=== PATIENT | male | born 1940 | race Caucasian/White ===

== ENCOUNTER 2016-12-14 18:45 | Emergency (ER) | payer MEDICARE, BC ==
[2016-12-14 16:42] LABS: WBC (NOT ORDERED) (RFLEX) 0 (0-5)
[2016-12-14 16:47] LABS: BASOPHILS 0.3 %; BASOPHILS ABSOLUTE 0.02 10/3/uL (0.0-0.16); EOSINOPHILS 0.6 %; EOSINOPHILS ABSOLUTE 0.04 10/3/uL (0.0-0.53); HEMATOCRIT 38.7 % (40.0-51.0); HEMOGLOBIN 12.6 g/dL (13.6-17.8); IMMATURE GRANULOCYTES 0.4 %; IMMATURE GRANULOCYTES ABSOLUTE 0.03 10/3/uL (0.0-0.11); LYMPHOCYTES 19.5 %; LYMPHOCYTES ABSOLUTE 1.38 10/3/uL (0.67-4.30); MEAN CORPUS HGB CONC 32.6 g/dL (32.0-36.0); MEAN CORPUSCULAR HEMOGLOB 30.9 pg (26.0-34.0); MEAN CORPUSCULAR VOLUME 94.9 fL (80-100); MEAN PLATELET VOLUME 9.4 fL (9.2-13.0); MONOCYTES 9.6 %; MONOCYTES ABSOLUTE 0.68 10/3/uL (0.21-1.20); NEUTROPHILS 69.6 %; NEUTROPHILS ABSOLUTE 4.94 10/3/uL (2.02-8.40); PLATELET COUNT 182 10/3/uL (150-400); RBC DISTRIBUTION WIDTH 15.1 % (12.0-16.0); RED CELL COUNT 4.08 10/6/uL (4.7-6.1); WHITE BLOOD CELLS 7.1 10/3/uL (4.5-10.5)
[2016-12-14 16:48] LABS: ER CBC TAT 0 Hrs 07 Mins; MANUAL DIFF NO %
[2016-12-14 16:50] LABS: ASCORBIC ACID (UR NOT ORDER) NEG (NEG); BILIRUBIN, URINE NEGATIVE (NEG); ER URINALYSIS TAT 0 Hrs 10 Mins; KETONE, URINE NEGATIVE (NEG); LEUKOCYTE ESTERASE(NOT OR NEG (NEG); NITRITE (URINE) NEG (NEG)
[2016-12-14 17:05] LABS: A/G RATIO 0.8 (0.7-1.9); ALBUMIN 2.8 G/DL (3.5-5.0); BUN (BLOOD UREA NITROGEN) 15 MG/DL (6-23); CALCIUM, SERUM 8.6 MG/DL (8.5-10.4); CHLORIDE, SERUM 104 MMOL/L (96-112); CO2 (CARBON DIOXIDE) 29 MMOL/L (24-34); CREATININE 0.92 MG/DL (0.70-1.30); GFR AFRICAN AMERICAN 93 ML/MIN (>=60); GFR NON AFRICAN AMERICAN 80 ML/MIN (>=60); GLOBULIN 3.4 G/DL (2.5-4.1); GLUCOSE, SERUM 107 MG/DL (60-99); LACTATE 1.1 MMOL/L (0.3-2.4); POTASSIUM, SERUM 4.6 MMOL/L (3.5-5.3); SGOT(AST) 204 U/L (5-40); SGPT(ALT) 181 U/L (5-65); SODIUM, SERUM 141 MMOL/L (135-148); TOTAL BILIRUBIN 0.7 MG/DL (0-1.2); TOTAL PROTEIN 6.2 G/DL (6.0-8.5); TROPONIN I 0.02 NG/ML (<0.05)
[2016-12-14 17:07] LABS: ALKALINE PHOSPHATASE 101 U/L (45-117)
[~2016-12-14 18:45] MED LIST: ACET500CAP PO; ALKA SELTZER OR; ALLEGRA180 PO; B121000P IM; C25 PO; C5 PO; COUMADIN4 MG PO; CYANO1000T PO; DITRO5 PO; DSS PO; FLAG500TAB PO; FLEXERIL5 MG PO; FLONASE NAS; FLORASTOR250 MG PO; K500 PO; L20 PO; L40 PO; LEVAQUIN750 MG PO; LORTAB 5/325 PO; METOPROLOL PO; MULTIVITAMI1 PO; MURINE EYE DROPS OPH; MURINE EYE DROPS OT; MURO1282% OPH; NATURA2 OPH; NORCO1 TA1 PO; NORV5 PO; OPTI CLEAR OPH; OTC ALLERGY TABLET PO; OXYCOD PO; PRILOSEC40 MG PO; PRIN10 PO; ROLAID PO; TOPXL25 PO; TOPXL50 PO; VITAMIN B-121000 MC1 SL; ZANTAC150 MG PO; ZOFRAN4 PO; [UNRECOGNIZED DRUG - OTHER]; [UNRECOGNIZED DRUG - OTHER] PO; [UNRECOGNIZED DRUG - REMARK] PO
[2016-12-23] MEDS ORDERED: VITAMIN B-121000 MC1 SL (16:13)
[2016-12-23] MEDS ORDERED: CALTRA600D PO (16:14)
[2016-12-23] MEDS ORDERED: JANTOVEN6 MG PO (16:15)
[2016-12-23] MEDS ORDERED: JANTOVEN4 MG PO (16:15)
[2016-12-23] MEDS ORDERED: ROLAIDS PO (17:09)
[2017-06-23] MEDS ORDERED: ZOFRAN4 PO (10:48)
== END 2016-12-14 19:51 | disposition home or self-care (01) ==
LOC: ER 18:45
PROVIDERS: Hospitalist
DX: R11.10 Vomiting, unspecified (principal); R10.9 Unspecified abdominal pain; I10 Essential (primary) hypertension; I48.91 Unspecified atrial fibrillation; K21.9 Gastro-esophageal reflux disease without esophagitis; Z87.442 Personal history of urinary calculi; Z85.46 Personal history of malignant neoplasm of prostate; Z88.5 Allergy status to narcotic agent; Z79.01 Long term (current) use of anticoagulants; Z79.899 Other long term (current) drug therapy
CPT/HCPCS: 71010; 74176; 80053; 81001; 83605; 83690; 84484; 85025; 99285

== ENCOUNTER 2016-12-20 20:26 | Inpatient (IN) | payer MEDICARE, BC ==
--- NOTE | ~2016-12-20 | CN ---
Consultation Report [facility] [address] [place]. [address] NAME: OLIVER VILLALPANDO : 38 STATUS : ADM IN [facility]#: [id number] AGE: 76 ADM/REG DATE : 12/21/16 MR#: [id number] REPORT SERV DATE: 12/21/16 DICTATED BY: SABAS BOWSER DATE: 12/21/16 REPORT STATUS : Draft TRANSCRIBED BY: MODL DATE: 12/21/16 CONSULTATION DATE OF CONSULTATION: 12/21/2016 CHIEF COMPLAINT: Right proximal humerus fracture. HISTORY OF PRESENT ILLNESS: The patient is a 76-year-old gentleman, who fell at home yesterday and injured his right shoulder. He was taken to the emergency department and had x-rays and was found to have a right proximal humerus fracture. He was admitted due to pain control. He said he fell on his right shoulder and had all his weight fall directly on his shoulder. He said that he was having extreme pain with any movement. PAST MEDICAL HISTORY: Atrial fibrillation, peptic ulcer disease, aortic aneurysm, prostate cancer, hypertension, pneumonia, chronic lymphedema. PAST SURGICAL HISTORY: Prostatectomy, cholecystectomy, gastrectomy, rhinoplasty, bilateral inguinal hernia. He has had a rotator cuff by Dr. Arevalo on the right, rotator cuff by Dr. Pascual on the left and hammertoe surgery. ALLERGIES: CODEINE. SOCIAL HISTORY: He quit smoking in 1989. He lives and cares for his son with Down syndrome. He is retired. He has another son, who lives near him. FAMILY HISTORY: Noncontributory. CURRENT MEDICATIONS: Lasix, lisinopril, metoprolol, probiotics, vitamin B12, stool softener, Coumadin alternating 4 and 6 mg doses. REVIEW OF SYSTEMS: Times 10 is negative, except for above. PHYSICAL EXAMINATION: GENERAL: Well-developed, well-nourished male, in no acute distress. HEENT: Normocephalic and atraumatic. RESPIRATORY: Nonlabored respirations. Equal chest rise bilaterally. EXTREMITIES: He has no cyanosis or clubbing. MUSCULOSKELETAL: Right upper extremity, extreme pain with any movement, tender to palpation. He has ecchymosis to right shoulder. NEURO: Alert and oriented x3. Neurovascularly intact right upper extremity. PSYCH: Normal mood and affect. LABORATORY DATA: INR is 3.1 on admission, 2.5 this morning. X-rays show comminuted fracture Consultation Report [place] [address] [facility] [address] NAME: OLIVER VILLALPANDO : 39 STATUS : ADM IN [facility]#: [id number] AGE: 76 ADM/REG DATE : 12/21/16 MR#: [id number] REPORT SERV DATE: 12/21/16 DICTATED BY: SABAS BOWSER DATE: 12/21/16 REPORT STATUS : Draft TRANSCRIBED BY: VEENA DATE: 12/21/16 of his right shoulder. ASSESSMENT AND PLAN: Right proximal humerus fracture. We are going to order a diet and let him come off his Coumadin. We will plan for surgery later in the week. RAYNA/VEENA Sabas Bowser MD / [id number] CC: Marisol Sanabria M.D.
--- NOTE | ~2016-12-20 | DS ---
Discharge Summary [place] [id number] [place]. [address] NAME: OLIVER VILLALPANDO : 39 STATUS : DIS IN PAT#: [id number] AGE: 76 ADM/REG DATE : 12/21/16 MR#: [id number] REPORT SERV DATE: 12/22/16 DICTATED BY: JAMI LYON DATE: 12/21/16 REPORT STATUS : Draft TRANSCRIBED BY: MODL DATE: 12/21/16 ADMISSION DATE: 12/21/2016 DISCHARGE DATE: 12/21/2016 DISCHARGE DIAGNOSIS: 1. Right humerus fracture. The patient is seen by Dr. Srinivasan who recommended coming back next week due to this lesion does not need to be acutely treated at this point, and also the surgeon's schedule gautam, there is no surgeon available at this point this week. The patient's fracture is stable enough to continue to wait until next week on when Dr. Srinivasan sees this patient. 2. Atrial fibrillation with chronic Coumadin use, INR was 2.5. We are going to continue the Coumadin at a lower dose until the surgery. 3. Hypertension. 4. No urinary tract infection. BALL RACKER: Sabas Srinivasan MD. HISTORY OF PRESENT ILLNESS: This is a 76-year-old male patient, who came to the hospital with a mechanical fall with a finding of right fractured humerus. Please see dictated H and P. HOSPITAL COURSE: He was admitted to hospital with a right humerus fracture, seen by Dr. Srinivasan, orthopedic surgeon. Currently, surgery is not available at this point, and his fracture needs to be urgently operated. Dr. Srinivasan recommended pain control and sling, and the patient will be seen by Dr. Srinivasan as an outpatient on the . It was explained to the patient, and finally he agreed to go home. We are going to prescribe hydrocodone 10 and Xanax for pain control, and we are going to provide a cane and a sling for balance assistance. Overall, he is stable and tolerating pain with the current pain management, and we are going to continue to use hydrocodone and Xanax as discharge pain medication. DISCHARGE MEDICATION: Lisinopril 10 mg once a day, Toprol-XL 50 mg once a day, Probiotic once a day, vitamin B12 once a day, the Coumadin I am going to cut it down to 2 mg until he sees the surgeon, Saturninoix 40 mg twice a day as needed, and again hydrocodone 10 and Xanax 0.5. ADDENDUM I discussed this case with Dr. Srinivasan and discharge plan was done. Dr. Arevalo visited this patient. He also received consultation from emergency room from yesterday and Dr. Srinivasan also received consultation from emergency room yesterday as well. According to the past surgical history, Dr. Arevalo did right shoulder surgery and Dr. Pascual, who is Dr. Srinivasan's partner did the left shoulder rotator cuff surgery. Dr. Arevalo is available this and he asked the patient to choose which surgeon he would like to go for his right humeral fracture and the patient chose to see Dr. Arevalo in his office on Wednesday and having surgery on in [facility] and the patient decided to go to see Dr. Arevalo. Dr. Srinivasan was also updated regarding this change and the patient will be discharged with current medication, but no Coumadin because he is going to have an evaluation sooner than next Wednesday, which he originally was planned. Therefore, the patient Discharge Summary [address] [address] NAME: OLIVER VILLALPANDO : 38 STATUS : DIS IN PAT#: [id number] AGE: 76 ADM/REG DATE : 12/21/16 MR#: [id number] REPORT SERV DATE: 12/22/16 DICTATED BY: JAMI LYON DATE: 12/21/16 REPORT STATUS : Draft TRANSCRIBED BY: MODL DATE: 12/21/16 will be discharged without Coumadin and is seeing Dr. Arevalo in his office on Wednesday and tentatively having surgery on . EKL/MODL Jami Lyon M.D. / [id number] / [id number] CC: Estefany Butler M.D.
--- NOTE | ~2016-12-20 | CN ---
Consultation Report [facility] [address] [place]. [address] NAME: OLIVER VILLALPANDO : 39 STATUS : DIS IN PAT#: [id number] AGE: 76 ADM/REG DATE : 12/21/16 MR#: [id number] REPORT SERV DATE: 01/01/17 DICTATED BY: HENRI ROBLERO DATE: 12/22/16 REPORT STATUS : Draft TRANSCRIBED BY: MODL DATE: 12/22/16 CONSULTATION DATE OF CONSULTATION: 12/21/2016 I was called to see the patient. CHIEF COMPLAINT: Fall, simply slipped at home and fell onto his foreface basically and his right shoulder suffering a comminuted humeral head fracture. They called me about him yesterday, to come to a consult today, got to see him, and it really was just for that shoulder and does not have anything else that is keeping him, so it is not pancreatitis or diverticulosis or CHF or leukocytosis or anything like that that is causing him any problems. I did speak with the primary care doctor about him. So I think we are going to go ahead and let him go home with a sling and swathe and to see me in the office so we can set this up on a more outpatient basis. He will need something either fixation or a hemiarthroplasty, and we may not even know that till we get in there. In addition, he is also on Coumadin so he has to slowly get off that. There is a couple of options and one is to keep him here and give him FFP and platelets and stuff like that and try to do that or to let him come down naturally over a couple days and do this later and that is what we are going to do and that helps both, may be able to take care of him and I think this may be a little teeny bit less risky as regard to clotting, and again I did discuss this with Dr. Lyon, so she will keep him off that. He will see me in the office on Wednesday and will plan this for or Wednesday depending on his INR. So his chief complaint is right shoulder pain. He complains of achy constant pain with occasional sharp pain. He denies numbness or tingling or anesthesia. He does have difficulty moving it because it is so painful. Any motion makes it feel worse. Keeping it still makes it feel better. PAST MEDICAL HISTORY: Past medical history is extensive and includes previous shoulder surgery on this side by me and previous shoulder surgery on the other side by Dr. Pascual, I believe. The remainder of his past medical history is seen in his admit note from Dr. Lyon. SOCIAL HISTORY: He denies tobacco or alcohol use and lives at home. Currently is independent. FAMILY HISTORY: Noncontributory. REVIEW OF SYSTEMS: Other than what has been mentioned above, the remainder of the review of systems is negative or noncontributory. PHYSICAL EXAMINATION: Consultation Report [place] [id number] [place]. [address] NAME: OLIVER VILLALPANDO : 38 STATUS : DIS IN PAT#: [id number] AGE: 76 ADM/REG DATE : 12/21/16 MR#: [id number] REPORT SERV DATE: 01/01/17 DICTATED BY: HENRI ROBLERO DATE: 12/22/16 REPORT STATUS : Draft TRANSCRIBED BY: VEENA DATE: 12/22/16 GENERAL: On examination, patient is a 76-year-old white male, alert and oriented x3. Pleasant and cooperative. Knew me as soon as I came into the room and seems very with it, although he may be confused at some times. HEENT: Within normal limits except for he has a big bruise over his proximal right face and a little abrasion over his eyebrow on that side. There is no crepitus or anything like that. The rest of his facial exam is within normal. There are no focal defects. NECK: Supple. CHEST: Clear. HEART: Regular rate and rhythm. ABDOMEN: Soft, nontender, benign. EXTREMITIES: All four extremities are neurovascularly intact. The right upper extremity is held to his side in a sort of sling, and he is tender with any motion. He has light touch that is over the sensory nerve over the lateral aspect of his shoulder, axillary nerve, and branch and distally. He can move his fingers, open and close, intrinsics all work. Distally, he has good motor and sensory function on both sides. IMAGING: Review of his x-ray shows a comminuted humeral head fracture and one of the tuberosities is off, it is hard to tell which one with the fracture, but it looks like the lesser tuberosity may be off posteriorly. It is not dislocated or anything, but it does mean the head is separate. ASSESSMENT: A 76-year-old man with a previous shoulder injury, who now has a humeral head fracture. Assessment is that he will likely need to have this fixed in one way or another. If we can get it fixed, we may put a plate on it trying to get it fixed, but with that head off, I would like to see it a little better when we are doing this. If the head is completely devoid of good blood supply or mostly devoid of good blood supply, clearly one of the tuberosities is off, which is a major blood supply to that. The shaft is off, which is not a major blood supply to that, only at least one tuberosity to even be attached. If that is not very good, he may benefit better from a head and neck replacing hemiarthroplasty rather than ORIF. We probably will decide it intra-op. In talking with his primary care doctor, we will get him out, go home. He will see me in the office on Wednesday and we will try to get him booked for or Wednesday based on his INR for repair of his right shoulder. TERRY/VEENA Henri Roblero M.D. / [id number] CC: Consultation Report [address] [address] NAME: OLIVER VILLALPANDO : 38 STATUS : DIS IN PAT#: [id number] AGE: 76 ADM/REG DATE : 12/21/16 MR#: [id number] REPORT SERV DATE: 01/01/17 DICTATED BY: HENRI ROBLERO DATE: 12/22/16 REPORT STATUS : Draft TRANSCRIBED BY: VEENA DATE: 12/22/16 Marisol Sanabria M.D.
--- NOTE | ~2016-12-20 | HP ---
History And Physical [address] [address] NAME: OLIVER VILLALPANDO : 38 STATUS : ADM Theron PAT#: [id number] AGE: 76 ADM/REG DATE : 12/20/16 MR#: [id number] REPORT SERV DATE: 12/21/16 DICTATED BY: SMILEY TAYLOR DATE: 12/21/16 REPORT STATUS : Draft TRANSCRIBED BY: MODJosh DATE: 12/21/16 DATE OF ADMISSION: 12/20/2016 CHIEF COMPLAINT: A 76-year-old male presenting with a fall, closed head injury, and right shoulder fracture. HISTORY OF PRESENTING ILLNESS: The patient's history was obtained through careful interview with the patient, coupled with review of [facility] medical records. The patient was outside "piddling around" looking at an evergreen mayer when he lost his balance and fell head first onto the ground. He states that "my entire body weight" fell onto the tip of his right shoulder and he had extreme pain. He also glanced the right side of his head with a small abrasion, probably he describes mostly of right shoulder pain, an aching quality. He states that it is a 120/10 severity pain exacerbated by any kind of movement. There was no loss of consciousness. No headache. He had to "scoot" on his "rear-end" to get to close to his house where he can call the son for assistance. He has had chronic right greater than left lymphedema. No chest pain. No shortness of breath. No nausea or vomiting. No fevers or chills. No recent illness. REVIEW OF SYSTEMS: Otherwise, a 14-point review of systems was obtained and was negative. PAST MEDICAL HISTORY: 1. Atrial fibrillation. 2. Peptic ulcer disease with gastroesophageal reflux disorder, followed by Dr. Turner. 3. Nephrolithiasis. 4. Thoracic aortic aneurysm 4.1 cm, seen by Dr. Kaur. 5. Prostate cancer, status post surgery, 2004. 6. Hypertension. 7. Pneumonia. 8. Klebsiella bacteremia, 2014. 9. Colitis, 06/2016. 10.Pancreatic nodule. 11.Chronic lymphedema, right greater than left. PAST SURGICAL HISTORY: 1. Prostatectomy, 2004. 2. Cholecystectomy. 3. Right knee surgery. History And Physical [address] [address] NAME: OLIVER VILLALPANDO : 38 STATUS : ADM Theron PAT#: [id number] AGE: 76 ADM/REG DATE : 12/20/16 MR#: [id number] REPORT SERV DATE: 12/21/16 DICTATED BY: SMILEY TAYLOR DATE: 12/21/16 REPORT STATUS : Draft TRANSCRIBED BY: VEENA DATE: 12/21/16 4. Gastrectomy with vagotomy for peptic ulcer disease. 5. Rhinoplasty. 6. Bilateral inguinal hernia repairs. 7. Bilateral shoulder operations. 8. Right hand surgery. 9. Bilateral hammertoe surgery. ALLERGIES: CODEINE. SOCIAL HISTORY: Quit smoking in 1989, but had been a three pack per day smoker prior to that. No alcohol abuse. Has been a since 2008. He lives and cares for his Down's syndrome son. He is retired from the [employer]. He has another son, who lives near by. 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 FAMILY HISTORY: Mother at 85 years of age. Father at 84 years of age. No family history of heart disease. CURRENT MEDICATIONS: Include Lasix 40 mg p.o. b.i.d., lisinopril 10 mg p.o. daily, metoprolol-XL 50 mg p.o. daily, probiotics, vitamin B12, eye drops, stool softener, Coumadin alternating doses of 4 and 6 mg. PHYSICAL EXAMINATION: VITAL SIGNS: Temperature 98.5, pulse 85, blood pressure 137/93, respiratory rate 17, O2 saturation 96% on room air. GENERAL: A pleasant, cooperative male, but he describes distress from his severe right shoulder pain. HEENT: Pupils equal, round, and reactive to light. No conjunctival pallor. No scleral icterus. Nares are patent. Oropharynx is clear of obstruction. Moist mucous membranes. NECK: Trachea midline. No thyromegaly. LYMPH: No cervical lymphadenopathy. No supraclavicular lymphadenopathy. RESPIRATORY: Clear to auscultation at bases. No wheezes, rales, or rhonchi. Normal respiratory effort. CARDIOVASCULAR: Irregularly irregular. No murmurs, rubs, or gallops, though the patient does have right greater than left pitting lower extremity edema, chronic in appearance. ABDOMEN: Soft, nontender, nondistended. Normal bowel sounds auscultated throughout. No hepatosplenomegaly. DERMATOLOGICAL: Warm and dry. EXTREMITIES: No pallor, no cyanosis. PSYCHIATRIC: Normal affect. Good mood. Alert and oriented x3. LABORATORY DATA: White blood cell count 13.1, hemoglobin 13, hematocrit 39, platelets 213. Sodium 142, potassium 4.4, chloride 104, bicarb 30, BUN 24, creatinine 1.19, glucose 109. Brain natriuretic peptide 297, albumin 2.8. Troponin negative. INR 3.1. STUDIES: 1. CT scan of the brain without contrast shows no acute intracranial process. History And Physical [address] [address] NAME: OLIVER VILLALPANDO : 38 STATUS : ADM Theron PAT#: [id number] AGE: 76 ADM/REG DATE : 12/20/16 MR#: [id number] REPORT SERV DATE: 12/21/16 DICTATED BY: SMILEY TAYLOR DATE: 12/21/16 REPORT STATUS : Draft TRANSCRIBED BY: MODL DATE: 12/21/16 2. Chest x-ray by my own evaluation shows no acute cardiopulmonary process. 3. X-ray shows right shoulder fracture with dislocation. 4. CT scan of the abdomen on 12/14/2016 was read as negative. ASSESSMENT AND PLAN: 1. Right humerus head fracture. Consult orthopedic surgeon. Place on IV narcotic pain management. Obtain a case management evaluation, as the patient may need eventual disposition to rehab? 2. Atrial fibrillation, on Coumadin. Check telemetry. 3. Leukocytosis. Monitor closely. Check urinalysis. 4. Closed head injury. Negative CT scan of the brain. KPL/MODL Smiley Taylor M.D. / [id number] CC: Marisol Sanabria M.D. John Chrostowski, M.D.
[2016-12-20 19:09] LABS: BASOPHILS 0.2 %; BASOPHILS ABSOLUTE 0.02 10/3/uL (0.0-0.16); EOSINOPHILS 0.5 %; EOSINOPHILS ABSOLUTE 0.06 10/3/uL (0.0-0.53); HEMATOCRIT 38.6 % (40.0-51.0); HEMOGLOBIN 12.6 g/dL (13.6-17.8); IMMATURE GRANULOCYTES 0.6 %; IMMATURE GRANULOCYTES ABSOLUTE 0.08 10/3/uL (0.0-0.11); LYMPHOCYTES 9.9 %; MEAN CORPUS HGB CONC 32.6 g/dL (32.0-36.0); MEAN CORPUSCULAR VOLUME 95.1 fL (80-100); MEAN PLATELET VOLUME 9.4 fL (9.2-13.0); MONOCYTES 8.8 %; MONOCYTES ABSOLUTE 1.15 10/3/uL (0.21-1.20); PLATELET COUNT 213 10/3/uL (150-400); RBC DISTRIBUTION WIDTH 15.4 % (12.0-16.0); RED CELL COUNT 4.06 10/6/uL (4.7-6.1)
[2016-12-20 19:13] LABS: ER CBC TAT 0 Hrs 08 Mins; MANUAL DIFF NO %; WHITE BLOOD CELLS 13.1 10/3/uL (4.5-10.5)
[2016-12-20 19:25] LABS: INTERNATIONAL NORMAL RATI 3.1 UNITS (-); PARTIAL THROMBO TIME 40.5 SEC (22.5-37.2)
[2016-12-20 19:26] LABS: BUN (BLOOD UREA NITROGEN) 24 MG/DL (6-23); CALCIUM, SERUM 8.6 MG/DL (8.5-10.4); CHEST PAIN PROFILE TAT 0 Hrs 21 Mins; CHLORIDE, SERUM 104 MMOL/L (96-112); CO2 (CARBON DIOXIDE) 30 MMOL/L (24-34); CREATININE 1.19 MG/DL (0.70-1.30); GFR AFRICAN AMERICAN 68 ML/MIN (>=60); GFR NON AFRICAN AMERICAN 59 ML/MIN (>=60); GLUCOSE, SERUM 101 MG/DL (60-99); POTASSIUM, SERUM 4.4 MMOL/L (3.5-5.3); SODIUM, SERUM 142 MMOL/L (135-148); TROPONIN I <0.02 NG/ML (<0.05)
[2016-12-20 19:33] LABS: PROTIME (NOT ORD) 31.9 SEC (12.0-14.5)
[2016-12-20] MEDS ORDERED: PROBIOTIC PO (21:06)
[2016-12-20] MEDS ORDERED: VITAMIN B12 OTC PO (21:07)
[2016-12-20] MEDS ORDERED: PRIN10 PO (21:07)
[2016-12-20] MEDS ORDERED: TOPXL50 PO (21:07)
[2016-12-20] MEDS ORDERED: JANTOVEN4 MG PO (21:08)
[2016-12-20] MEDS ORDERED: L40 PO (21:08)
[2016-12-20] MEDS ORDERED: COUMADIN6 MG PO (21:08)
[2016-12-20] MEDS ORDERED: COLD AND COUGH PO (21:09)
[2016-12-20] MEDS ORDERED: MURINE EYE DROPS OPH (21:09)
[2016-12-20] MEDS ORDERED: STOOL SOFTENER OTC PO (21:10)
[2016-12-20 21:33] LABS: WBC (NOT ORDERED) (RFLEX) 0 (0-5)
[2016-12-20 21:44] LABS: ASCORBIC ACID (UR NOT ORDER) NEG (NEG); BILIRUBIN, URINE NEGATIVE (NEG); ER URINALYSIS TAT 0 Hrs 12 Mins; KETONE, URINE NEGATIVE (NEG); LEUKOCYTE ESTERASE(NOT OR NEG (NEG); NITRITE (URINE) NEG (NEG)
[2016-12-21 05:07] LABS: BASOPHILS 0.1 %; BASOPHILS ABSOLUTE 0.01 10/3/uL (0.0-0.16); EOSINOPHILS 0.6 %; EOSINOPHILS ABSOLUTE 0.06 10/3/uL (0.0-0.53); HEMATOCRIT 34.9 % (40.0-51.0); HEMOGLOBIN 11.4 g/dL (13.6-17.8); IMMATURE GRANULOCYTES 0.6 %; IMMATURE GRANULOCYTES ABSOLUTE 0.06 10/3/uL (0.0-0.11); LYMPHOCYTES 19.7 %; LYMPHOCYTES ABSOLUTE 2.03 10/3/uL (0.67-4.30); MEAN CORPUS HGB CONC 32.7 g/dL (32.0-36.0); MEAN CORPUSCULAR HEMOGLOB 31.1 pg (26.0-34.0); MEAN CORPUSCULAR VOLUME 95.1 fL (80-100); MEAN PLATELET VOLUME 9.3 fL (9.2-13.0); MONOCYTES 13.1 %; MONOCYTES ABSOLUTE 1.35 10/3/uL (0.21-1.20); NEUTROPHILS 65.9 %; NEUTROPHILS ABSOLUTE 6.77 10/3/uL (2.02-8.40); PLATELET COUNT 219 10/3/uL (150-400); RBC DISTRIBUTION WIDTH 15.4 % (12.0-16.0); RED CELL COUNT 3.67 10/6/uL (4.7-6.1); WHITE BLOOD CELLS 10.3 10/3/uL (4.5-10.5)
[2016-12-21 05:11] LABS: MANUAL DIFF NO %
[2016-12-21 05:19] LABS: INTERNATIONAL NORMAL RATI 2.5 UNITS (-); PARTIAL THROMBO TIME 37.1 SEC (22.5-37.2)
[2016-12-21 05:20] LABS: PROTIME (NOT ORD) 26.9 SEC (12.0-14.5)
[2016-12-21 05:28] LABS: A/G RATIO 0.8 (0.7-1.9); ALBUMIN 2.5 G/DL (3.5-5.0); ALKALINE PHOSPHATASE 66 U/L (45-117); BUN (BLOOD UREA NITROGEN) 21 MG/DL (6-23); CALCIUM, SERUM 8.2 MG/DL (8.5-10.4); CHLORIDE, SERUM 107 MMOL/L (96-112); CO2 (CARBON DIOXIDE) 26 MMOL/L (24-34); CREATININE 0.95 MG/DL (0.70-1.30); GFR AFRICAN AMERICAN 89 ML/MIN (>=60); GFR NON AFRICAN AMERICAN 77 ML/MIN (>=60); GLOBULIN 3.2 G/DL (2.5-4.1); GLUCOSE, SERUM 104 MG/DL (60-99); POTASSIUM, SERUM 4.5 MMOL/L (3.5-5.3); SGOT(AST) 31 U/L (5-40); SGPT(ALT) 40 U/L (5-65); SODIUM, SERUM 141 MMOL/L (135-148); TOTAL BILIRUBIN 0.7 MG/DL (0-1.2); TOTAL PROTEIN 5.7 G/DL (6.0-8.5); ULTRASENSITIVE TSH 0.412 MCIU/ML (0.358-3.740)
[2016-12-21] MEDS ORDERED: NORCO1 TAB (16:56)
[2016-12-21] MEDS ORDERED: XANAX XR0.5 MG (16:57)
[2016-12-21] MEDS ORDERED: PCET PO (18:30)
[2016-12-21] MEDS ORDERED: T PO (18:31)
[2016-12-23] MEDS ORDERED: VITAMIN B-121000 MC1 SL (16:13)
[2016-12-23] MEDS ORDERED: CALTRA600D PO (16:14)
[2016-12-23] MEDS ORDERED: JANTOVEN6 MG PO (16:15)
[2016-12-23] MEDS ORDERED: JANTOVEN4 MG PO (16:15)
[2016-12-23] MEDS ORDERED: ROLAIDS PO (17:09)
[2017-06-23] MEDS ORDERED: ZOFRAN4 PO (10:48)
== END 2016-12-21 19:25 | disposition home or self-care (01) | DRG 563 ==
LOC: ER 20:26 → 7NO 22:51
PROVIDERS: Emergency Medicine; Hospitalist
DX: S42.291A Other displaced fracture of upper end of right humerus, initial encounter for closed fracture (principal); I71.2 Thoracic aortic aneurysm, without rupture; I48.91 Unspecified atrial fibrillation; I10 Essential (primary) hypertension; W18.30XA Fall on same level, unspecified, initial encounter; K21.9 Gastro-esophageal reflux disease without esophagitis; I89.0 Lymphedema, not elsewhere classified; Z53.8 Procedure and treatment not carried out for other reasons; Z79.01 Long term (current) use of anticoagulants; Z87.442 Personal history of urinary calculi; Z87.11 Personal history of peptic ulcer disease; Z85.46 Personal history of malignant neoplasm of prostate; Z87.01 Personal history of pneumonia (recurrent); Z87.891 Personal history of nicotine dependence
CPT/HCPCS: 70450; 71010; 73030-RT; 80048; 80053; 81001; 83735; 83880; 84443; 84484; 85025; 85610; 85730; 96374; 99285; A9270-GY; J1170; J2405

== ENCOUNTER → 2017-02-01 20:40 | Emergency (ER) | payer MEDICARE, BC ==
[2017-02-01 18:20] LABS: BASOPHILS 0.4 %; BASOPHILS ABSOLUTE 0.03 10/3/uL (0.0-0.16); EOSINOPHILS 1.2 %; EOSINOPHILS ABSOLUTE 0.08 10/3/uL (0.0-0.53); HEMATOCRIT 33.9 % (40.0-51.0); IMMATURE GRANULOCYTES 0.3 %; IMMATURE GRANULOCYTES ABSOLUTE 0.02 10/3/uL (0.0-0.11); LYMPHOCYTES 19.2 %; LYMPHOCYTES ABSOLUTE 1.32 10/3/uL (0.67-4.30); MEAN CORPUS HGB CONC 32.4 g/dL (32.0-36.0); MEAN CORPUSCULAR HEMOGLOB 30.6 pg (26.0-34.0); MEAN CORPUSCULAR VOLUME 94.4 fL (80-100); MONOCYTES 11.4 %; MONOCYTES ABSOLUTE 0.78 10/3/uL (0.21-1.20); NEUTROPHILS 67.5 %; NEUTROPHILS ABSOLUTE 4.63 10/3/uL (2.02-8.40); RBC DISTRIBUTION WIDTH 15.2 % (12.0-16.0); RED CELL COUNT 3.59 10/6/uL (4.7-6.1); WHITE BLOOD CELLS 6.9 10/3/uL (4.5-10.5)
[2017-02-01 18:23] LABS: MANUAL DIFF NO %; PLATELET COUNT 250 10/3/uL (150-400)
[2017-02-01 18:35] LABS: CALCIUM, SERUM 8.8 MG/DL (8.5-10.4); CHEST PAIN PROFILE TAT 0 Hrs 21 Mins; CHLORIDE, SERUM 106 MMOL/L (96-112); CO2 (CARBON DIOXIDE) 27 MMOL/L (24-34); CREATININE 1.22 MG/DL (0.70-1.30); GFR AFRICAN AMERICAN 65 ML/MIN (>=60); GFR NON AFRICAN AMERICAN 56 ML/MIN (>=60); GLUCOSE, SERUM 105 MG/DL (60-99); POTASSIUM, SERUM 4.6 MMOL/L (3.5-5.3); SODIUM, SERUM 139 MMOL/L (135-148); TROPONIN I 0.02 NG/ML (<0.05)
[2017-02-01 18:36] LABS: BUN (BLOOD UREA NITROGEN) 22 MG/DL (6-23); INTERNATIONAL NORMAL RATI 2.2 UNITS (-); PARTIAL THROMBO TIME 33.8 SEC (22.5-37.2); PROTIME (NOT ORD) 24.2 SEC (12.0-14.5)
[~2017-02-01 20:40] MED LIST changes: +CALTRA600D PO; +COLD AND COUGH PO; +COUMADIN6 MG PO; +JANTOVEN4 MG PO; +JANTOVEN6 MG PO; +NORCO1 TAB; +PCET PO; +PROBIOTIC PO; +ROLAIDS PO; +STOOL SOFTENER OTC PO; +T PO; +VITAMIN B12 OTC PO; +XANAX XR0.5 MG
== END | disposition home or self-care (01) ==
LOC: ER 20:40
PROVIDERS: Emergency Medicine
DX: R11.0 Nausea (principal); I10 Essential (primary) hypertension; I48.91 Unspecified atrial fibrillation; K21.9 Gastro-esophageal reflux disease without esophagitis; F17.200 Nicotine dependence, unspecified, uncomplicated; Z88.5 Allergy status to narcotic agent; Z79.899 Other long term (current) drug therapy; Z79.01 Long term (current) use of anticoagulants
CPT/HCPCS: 71020; 80048; 83735; 83880; 84484; 85025; 85610; 85730; 93005; 99284